=== PATIENT | male | born 1950 | race Hispanic/Latino ===

== ENCOUNTER 2018-04-07 08:18 | Emergency (ER) | payer OTHER, MEDICARE ==
[~2018-04-07 08:18] MED LIST: ALLO100T PO; IBUPROFEN; LISI40TA4 PO; METF-444 PO; NAPR-1023 PO; OLME40TA8 PO; SIMV40TA59 PO
== END 2018-04-07 09:39 | disposition left against medical advice (07) ==
LOC: EDH 08:18
DX: M54.9 Dorsalgia, unspecified (principal); G89.29 Other chronic pain; E11.9 Type 2 diabetes mellitus without complications; I10 Essential (primary) hypertension; Z53.21 Procedure and treatment not carried out due to patient leaving prior to being seen by health care provider